=== PATIENT | male | born 1995 ===

== ENCOUNTER 2017-06-24 17:07 | Emergency (ER) | payer SELFPAY ==
[2017-06-24 17:13] VITALS: BP 142/77; PULSE 71; RESP 20; TEMP 98.2; O2SAT 100
--- NOTE | 2017-06-24 17:28 | C.PDOC ---
History Of Present Illness 21-year-old male, presents to the emergency department with complaints of epistaxis. Patient was walking on sidewalk, when he sustained injury to face s/ p mechanical trip/fall. Patient comes in with nasal pain and epistaxis. Denies loss of consciousness, or direct head/neck trauma. No chest pain or shortness of breath. Time Seen by Provider: 06/24/17 17:24 Chief Complaint (Nursing): Abnormal Skin Integrity History Per: Patient History/Exam Limitations: no limitations Onset/Duration Of Symptoms: Other ([employer]) Current Symptoms Are (Timing): Still Present Past Medical History Reviewed: Historical Data, Nursing Documentation, Vital Signs Vital Signs: Last Vital Signs Temp 98.2 F 06/24/17 17:08 Pulse 71 06/24/17 17:08 Resp 20 06/24/17 17:08 BP 142/77 06/24/17 17:08 Pulse Ox 100 06/24/17 17:44 Family History: States: No Known Family Hx - Social History Hx Alcohol Use: Yes Hx Substance Use: No - Immunization History Hx Tetanus Toxoid Vaccination: No Hx Influenza Vaccination: Yes Hx Pneumococcal Vaccination: No Review Of Systems Except As Marked, All Systems Reviewed And Found Negative. Constitutional: Negative for: Fever, Chills ENT: Positive for: Other (epistaxis) Cardiovascular: Negative for: Chest Pain Respiratory: Negative for: Shortness of Breath Gastrointestinal: Negative for: Nausea, Vomiting Musculoskeletal: Negative for: Back Pain Neurological: Negative for: Weakness, Numbness, Headache, Dizziness Physical Exam - Physical Exam Appears: Non-toxic, No Acute Distress (uncomfortable) Skin: Warm, Dry, No Rash Head: Normacephalic, Abrasion ((+)<.2 cm, to bridge of nose) Eye(s): bilateral: Normal Inspection, PERRL Nose: Normal, Epistaxis (controled, no active bleeding), Deformity, Tenderness, No Septal Hematoma, Other (dried blood surrounding nares w/ (+) nasal tenderness ) Neck: Normal ROM, No Step Off Deformity Chest: Symmetrical Cardiovascular: Rhythm Regular, No Murmur Respiratory: Normal Breath Sounds, No Accessory Muscle Use Extremity: Normal ROM Neurological/Psych: Oriented x3, Normal Speech ED Course And Treatment - Laboratory Results Result Diagrams: 06/24/17 17:40 06/24/17 17:40 O2 Sat by Pulse Oximetry: 100 Medical Decision Making Medical Decision Making: pt with epistaxis, nasal trauma- r/o fx- bleeding controled on arrival. aftrin spray given. 700: ct shows nasal septum fx. will give keflex prophaxsis, pt advised will need outpt f/u with ent. no active bleeding on d/c. advise outpt f/u and strict return precautions. pt on phone in nad. Disposition - Disposition Referrals: [facility] [Outside] [facility] [Outside] Pan Moreno MD [Staff Provider] - Disposition: HOME/ ROUTINE Disposition Time: 07:00 Condition: STABLE Additional Instructions: please follow up with ENT. return toe r with worsening symptoms or concerns. you will need further management by ENT. Prescriptions: Cephalexin [cephalexin] 500 mg PO QID #28 cap Naproxen [Naprosyn] 500 mg PO BID PRN #14 tab PRN Reason: Pain, Mild (1-3) Instructions: Nasal Fracture (ED) Forms: [employer] (Sami) Print Language: JAPANESE - Clinical Impression Clinical Impression: Nasal septum fracture, Epistaxis, Head injury - Scribe Statement The provider has reviewed the documentation as recorded by the Scribe (Jessica Arzola) All medical record entries made by the Scribe were at my direction and personally dictated by me. I have reviewed the chart and agree that the record accurately reflects my personal performance of the history, physical exam, medical decision making, and the department course for this patient. I have also personally directed, reviewed, and agree with the discharge instructions and disposition.
[2017-06-24] MEDS ORDERED: Silver Nitrate Topical - Stick ONE (17:29)
[2017-06-24] MEDS ORDERED: Phenylephrine 1% Nasal Spray (15 ml) NAS STA (17:34)
[2017-06-24] MEDS ORDERED: Phenylephrine 1% Nasal Spray (15 ml) ONE (17:41)
[2017-06-24 17:44] LABS: BASO % 0.6 % (0.0-2.0); EOS # 0.1 K/uL (0.0-0.7); EOS % 1.5 % (0.0-4.0); HEMATOCRIT 42.3 % (35.0-51.0); LYMPH # 2.2 K/uL (1.0-4.3); MEAN CELL VOLUME 86.9 fL (80.0-94.0); MEAN CORPUSCULAR HEMOGLOBIN 28.9 pg (27.0-31.0); MEAN CORPUSCULAR HGB CONC 33.2 g/dL (33.0-37.0); MEAN PLATELET VOLUME 8.8 fL (7.2-11.7); MONO # 0.6 K/uL (0.0-0.8); MONO % 9.9 % (0.0-10.0); NRBC % 0.1 % (0.0-2.0); RED CELL DISTRIBUTION WIDTH 12.8 % (11.5-14.5)
[2017-06-24 18:11] LABS: CHLORIDE 99 mmol/L (98-107)
[2017-06-24 18:12] LABS: POTASSIUM 3.4 mmol/L (3.6-5.2); SODIUM 143 mmol/L (132-148)
[2017-06-24 18:14] LABS: ALB/GLOB RATIO 1.3 (1.0-2.1); ALKALINE PHOSPHATASE 87 U/L (38-126); AST/SGOT 26 U/L (17-59); BILIRUBIN,TOTAL 0.6 mg/dL (0.2-1.3); CARBON DIOXIDE 27 mmol/L (22-30); GFR AFRICAN-AMERICAN > 60; TOTAL PROTEIN 7.8 g/dL (6.3-8.3)
[2017-06-24 18:15] LABS: ALT/SGPT 33 U/L (21-72); BLOOD UREA NITROGEN 11 mg/dL (9-20); CALCIUM 9.2 mg/dl (8.6-10.4); GLUCOSE,RANDOM 81 mg/dL (75-110)
--- NOTE | 2017-06-24 19:04 | CT ---
EXAM: CT Head Without Intravenous Contrast CLINICAL HISTORY: 21 years old, male; Injury or trauma; Fall; Initial encounter; Abrasion; Not specified TECHNIQUE: Axial computed tomography images of the head/brain without intravenous contrast. This CT exam was performed using one or more of the following dose reduction techniques: automated exposure control, adjustment of the mA and/or kV according to patient size, and/or use of iterative reconstruction technique. EXAM DATE/TIME: 06/24/2017 5:32 PM COMPARISON: There are no prior studies for comparison. FINDINGS: Brain: Ventricles are normal in size and configuration. There is no midline shift. There are no intra-axial or extra-axial mass lesions or areas of hemorrhage. There are no abnormal fluid collections. Hendricks-white differentiation is maintained. Ventricles: See above. Bones: Cranial vault is intact. There is edema in the anterior nasal cavity. There is a fracture of the bony nasal septum. Soft tissues: unremarkable Sinuses: There is left maxillary sinusitis. Ears and mastoids: Middle ears and mastoids are unremarkable. There is streak artifact from an earring Orbits: Orbital contents are unremarkable. IMPRESSION: No acute intracranial abnormality; edema in the nasal cavity with bony nasal septal fracture; left maxillary sinus disease
--- NOTE | 2017-06-24 19:04 | CT ---
EXAM: CT Maxillofacial Without Intravenous Contrast CLINICAL HISTORY: 21 years old, male; Injury or trauma; Fall; Initial encounter; Abrasion; Nose TECHNIQUE: Axial computed tomography images of the face without intravenous contrast. This CT exam was performed using one or more of the following dose reduction techniques: automated exposure control, adjustment of the mA and/or kV according to patient size, and/or use of iterative reconstruction technique. Coronal and sagittal reformatted images were created and reviewed. EXAM DATE/TIME: 06/24/2017 5:32 PM COMPARISON: There are no prior studies for comparison. FINDINGS: Artifacts: There is streak artifact from braces. Bones/joints: There is facial and nasal soft tissue swelling greatest on the right. There is edema in the anterior nasal cavity and about the nasal septum. There is a fracture of the bony nasal septum. Maxillary spine is intact. Alveolar ridge is intact. Orbital floors are intact. No nasal bone fracture is identified Deep Soft tissues: There are no facial masses Orbits: Globes are intact. Retrobulbar structures are symmetric. Sinuses: There is almost complete opacification of the left maxillary sinus. There is minimal mucosal thickening in the right maxillary sinus. Frontal, ethmoid and sphenoid sinuses are unremarkable. There is mucosal thickening at the right ostiomeatal complex. There is mucosal thickening with occlusion Mastoid air cells: Middle ears are unremarkable. Mastoids are incompletely pneumatized. Brain: No focal abnormalities are seen in visualized portion of the brain. IMPRESSION: Nasal and nasal cavity soft tissue swelling; fracture of the bony nasal septum, no nasal bone fracture; left maxillary sinusitis
== END 2017-06-24 19:21 | disposition home or self-care (01) ==
LOC: C.ER 17:07
DX: S02.2XXA Fracture of nasal bones, initial encounter for closed fracture (principal); S00.31XA Abrasion of nose, initial encounter; W01.0XXA Fall on same level from slipping, tripping and stumbling without subsequent striking against object, initial encounter; R04.0 Epistaxis